=== PATIENT | male | born 1945 | race Caucasian/White ===

== ENCOUNTER → 2020-12-08 09:38 | Outpatient (CLI) | payer MEDICARE, SELFPAY ==
[2020-12-03 16:14] VITALS: BMI 31.6
[2020-12-08 11:30] LABS: Anion Gap 5 (5-15); BUN 19 mg/dL (7-18); BUN/Creat Ratio 18.6 RATIO (10-20); Chloride 105 mmol/L (98-107); Creatinine, Serum 1.02 mg/dL (0.70-1.30); EST Glomerular Filtration Rate 76 mL/min (>60); Est Glom Filt Rate - Afr Amer 92 mL/min (>60); Glucose 117 mg/dL (74-106); Magnesium 1.6 mg/dL (1.6-2.6); Potassium 4.1 mmol/L (3.5-5.1); Sodium Level 138 mmol/L (136-145); Thyroid Stim Hormone (TSH) 2.44 uIU/mL (0.358-3.74)
== END ==
PROVIDERS: PCP Family Medicine; Referring Provider Internal Medicine Cardiovascular Disease; Visit Provider Internal Medicine Cardiovascular Disease
DX: I10 Essential (primary) hypertension (principal); I47.1 Supraventricular tachycardia; I47.2 Ventricular tachycardia
CPT/HCPCS: 36415; 80048; 83735; 84443

== ENCOUNTER → 2020-12-22 06:53 | Outpatient (CLI) | payer MEDICARE, SELFPAY ==
[2020-12-03 16:14] VITALS: BMI 31.6
--- NOTE | 2020-12-22 06:55 | ECHOCS_ITS ---
Reason For Study: Arrhythmia Procedure This was a 2D Doppler, Color Flow transthoracic echocardiogram. The study was technically difficult. Contrast injection was performed. Exam performed in department. Left Ventricle Normal LV size. Moderate concentric left ventricular hypertrophy. The estimated ejection fraction is 60 %. Stage 1 diastolic dysfunction. No regional wall motion abnormalities noted. Right Ventricle Normal RV size. Normal systolic function. Atria Normal left atrium. Normal right atrium. Mitral Valve Normal mitral valve. Tricuspid Valve Normal tricuspid valve. Aortic Valve The aortic valve is not well visualized. Pulmonic Valve Normal pulmonic valve. Great Vessels Normal aortic root. The pulmonary artery is normal size. Normal inferior vena cava. Pericardium/Pleural No pericardial effusion. Medication 22 gauge I.V. with prn adaptor inserted into right arm. Diluted definity 5ml given slow IV push to enhance endocardial definition. MMode/2D Measurements & Calculations LVIDd: 4.3 cm IVSd: 1.5 cm Ao root diam: 4.2 cm LVIDs: 2.7 cm LVPWd: 1.6 cm LA dimension: 3.4 cm FS: 37.7 % LAV(MOD-bp): 36.9 ml LA A4 area: 13.5 cm2 RA A4 area: 13.9 cm2 LAV(MOD-bp) Indexed: 17.7 ml/m2 LAV(MOD-sp2): 40.4 ml LAV(MOD-sp4): 30.0 ml Time Measurements MV dec time: 0.19 sec Doppler Measurements & Calculations MV E max kg: 47.6 cm/sec Lat Peak E' Kg: 7.3 cm/sec Med Peak E' Kg: 4.8 cm/sec MV A max kg: 91.7 cm/sec E/E' lat: 6.5 E/E' med: 9.8 MV E/A: 0.52 MV V2 max: 119.2 cm/sec MV P1/2t max kg: 60.4 cm/sec Ao V2 max: 100.9 cm/sec MV max P.7 mmHg MV P1/2t: 112.2 msec Ao max P.1 mmHg MV V2 mean: 57.4 cm/sec MV dec slope: 157.7 cm/sec2 MV mean P.6 mmHg MV V2 VTI: 21.1 cm MVA(P1/2t): 2.0 cm2 LV V1 max: 101.2 cm/sec PA V2 max: 82.8 cm/sec LV V1 max P.1 mmHg ECHO/Echo Complete W/ Contrast Interpretation Summary Normal LV size. Moderate concentric left ventricular hypertrophy. The estimated ejection fraction is 60 %. Stage 1 diastolic dysfunction. Contrast injection was performed. Ordering Physician: Yosi Luis Referring Physician: Christian Person Performed By: Maurice Brennan RCS
--- NOTE | 2020-12-22 18:16 | STRESSREP ---
Stress Test Report Exercise my cardial perfusion stress test. 75-year-old man with a history of paroxysmal atrial fibrillation. Stress protocol: Resting EKG demonstrates normal sinus rhythm with a rate of 85 bpm occasional premature ventricular complexes noted. Incomplete right bundle branch block is present. The resting blood pressure is 132/84 mmHg. The patient exercised according to the regular [facility] protocol for total duration of 4 minutes and 15 seconds. The maximum heart rate attained was 169 bpm which was 115% of max infected heart rate the maximum workload was 6.1 metabolic equivalents. At rest there were no ST or T wave changes noted to suggest ischemia and at peak exercise upsloping ST changes were noted with did not meet the criteria for ischemia. Occasional premature ventricular complexes were noted with 2 episodes of nonsustained ventricular tachyarrhythmia. No clinical angina was noted the patient did experience shortness of breath. Myocardial perfusion protocol. 11.4 mCi of technetium 99m sestamibi was injected at rest. The patient exercised according to regular [facility] protocol for 4 minutes and 16 seconds. The maximum heart rate attained 169 bpm. At peak exercise 36.0 mCi of technetium 99m sestamibi was injected stress images were obtained stress and rest images were reconstructed and compared in the short axis vertical long and horizontal long axis. Gated images were also obtained. Perfusion SPECT analysis: Review of the stress images demonstrate normal uptake of tracer noted in all areas of the myocardium. The resting images similarly demonstrate normal uptake of tracer noted in all areas of the myocardium. No obvious areas of reversibility are noted to suggest ischemia and no previous infarct is noted. Gated SPECT analysis: The gated ejection fraction is normal over 55%. Conclusion: Normal exercise myocardial perfusion stress test at a moderate workload. Occasional nonsustained ventricular tachyarrhythmia noted. Moderate functional aerobic impairment.
== END ==
PROVIDERS: PCP Family Medicine; Referring Provider Internal Medicine Cardiovascular Disease; Visit Provider Internal Medicine Cardiovascular Disease
DX: I47.2 Ventricular tachycardia (principal); I45.10 Unspecified right bundle-branch block; R06.02 Shortness of breath
CPT/HCPCS: 78452; 93017; 93306; A9500; Q9957; C8929; J3490

== ENCOUNTER → 2024-09-06 | Outpatient (CLI) | payer MEDICARE, SELFPAY ==
[2024-09-06 10:28] LABS: Anion Gap 10 (5-15); BUN 28 mg/dL (4-19); BUN/Creat Ratio 26.3 RATIO (10-20); Calcium,Total 9.2 mg/dL (7.6-11.0); Chloride 103 mmol/L (98-108); Creatinine, Serum 1.07 mg/dL (0.70-1.20); EST Glomerular Filtration Rate 71 (>60); Glucose 111 mg/dL (70-99); Magnesium 1.4 mg/dL (1.5-2.2); Potassium 4.3 mmol/L (3.3-5.1); Sodium Level 139 mmol/L (133-145)
== END | disposition home or self-care (01) ==
LOC: LAB 09:18
PROVIDERS: PCP Family Medicine; Referring Provider Nurse Practitioner Family; Visit Provider Nurse Practitioner Family
DX: I47.10 Supraventricular tachycardia, unspecified (principal); I10 Essential (primary) hypertension; E78.5 Hyperlipidemia, unspecified
CPT/HCPCS: 36415; 80048; 83735; 84443

== ENCOUNTER → 2024-10-03 | Outpatient (CLI) | payer MEDICARE, SELFPAY ==
--- NOTE | 2024-10-03 08:03 | ECHOD_ITS ---
Reason For Study Reason For Study: Tachycardia Procedure This was a 2D Doppler, Color Flow transthoracic echocardiogram. Technically difficult study, patient could not hold still for testing. Exam performed in department. Left Ventricle Normal LV size. Sigmoid septum. The left ventricular ejection fraction is 60 %. Stage 1 diastolic dysfunction. No regional wall motion abnormalities noted. Right Ventricle Normal RV size. Normal systolic function. Atria Normal left atrium. Normal right atrium. Mitral Valve Normal mitral valve. Tricuspid Valve Normal tricuspid valve. Mild (1+) tricuspid valve insufficiency. Pulmonary artery systolic pressure is 28 mmHg. Aortic Valve Trisinus/trileaflet aortic valve. Mild (1+) aortic valve insufficiency. Pulmonic Valve Normal pulmonic valve. Great Vessels Normal sized aortic root. The pulmonary artery is normal size. Inferior vena cava collapse with respiration. Pericardium/Pleural No pericardial effusion. MMode/2D Measurements & Calculations LVIDd: 5.3 cm IVSd: 1.2 cm Ao root diam: 3.9 cm LVIDs: 3.9 cm LVPWd: 0.79 cm RVDd: 3.5 cm FS: 27.2 % LAV(MOD-bp): 23.5 ml LVAd ap4: 26.9 cm2 SV(MOD-sp4): 52.0 ml LAV(MOD-bp) Indexed: 11.4 ml/m2 LVLd ap4: 7.3 cm SI(MOD-sp4): 25.2 ml/m2 LAV(MOD-sp2): 32.2 ml EDV(MOD-sp4): 80.4 ml LAV(MOD-sp4): 16.9 ml EDV(sp4-el): 83.5 ml LVAs ap4: 14.7 cm2 LVLs ap4: 6.6 cm ESV(MOD-sp4): 28.5 ml ESV(sp4-el): 27.9 ml EF(MOD-sp4): 64.6 % EF(sp4-el): 66.6 % SV(sp4-el): 55.6 ml Ao sinus diam: 3.[address] Junction: 3.5 cm LA dimension(2D): 3.8 cm LA A4 area: 8.0 cm2 RA A4 area: 10.5 cm2 TAPSE: 1.5 cm Time Measurements MV dec time: 0.24 sec Doppler Measurements & Calculations MV E max kg: 45.9 cm/sec Lat Peak E' Kg: 5.8 cm/sec Med Peak E' Kg: 5.8 cm/sec MV A max kg: 98.2 cm/sec E/E' lat: 7.9 E/E' med: 7.9 MV E/A: 0.47 MV V2 max: 113.6 cm/sec MV dec slope: 192.6 cm/sec2 Ao V2 max: 132.0 cm/sec MV max P.2 mmHg Ao max P.0 mmHg MV V2 mean: 60.7 cm/sec Ao V2 mean: 89.4 cm/sec MV mean P.7 mmHg Ao mean P.7 mmHg MV V2 VTI: 20.0 cm Ao V2 VTI: 21.9 cm AV (velocity ratio): 0.95 AI max kg: 487.5 cm/sec LV V1 max: 126.0 cm/sec MR max kg: 586.3 cm/sec AI max P.1 mmHg LV V1 max P.4 mmHg MR max P.5 mmHg AI dec slope: 258.2 cm/sec2 LV V1 mean P.3 mmHg MR mean kg: 476.6 cm/sec AI P1/2t: 552.9 msec LV V1 mean: 83.7 cm/sec MR mean P.6 mmHg LV V1 VTI: 20.8 cm MR VTI: 148.9 cm PA V2 max: 101.2 cm/sec TR max kg: 247.5 cm/sec TR max P.5 mmHg ECHO/Echo Complete Interpretation Summary Normal LV size. The left ventricular ejection fraction is 60 %. Sigmoid septum. Stage 1 diastolic dysfunction. Mild (1+) aortic valve insufficiency. Ordering Physician: Hermann Marks Referring Physician: Hermann Marks Performed By: Maurice Brennan RCS
== END | disposition home or self-care (01) ==
LOC: CVS 08:03
PROVIDERS: PCP Family Medicine; Referring Provider Nurse Practitioner Family; Visit Provider Nurse Practitioner Family
DX: I47.29 Other ventricular tachycardia (principal); I10 Essential (primary) hypertension; I47.10 Supraventricular tachycardia, unspecified; E78.5 Hyperlipidemia, unspecified
CPT/HCPCS: 93306